=== PATIENT | female | born 1950 | race Caucasian/White ===

== ENCOUNTER → 2017-07-19 | Outpatient (CLI) | payer OTHER ==
[~2017-07-19] MED LIST: AMLODIPINE BESY10 MG PO; ASPIR 8181 MG PO; CARAFATE 1 GM TA1 G1 PO; COREG25 MG PO; CYMBALTA60 MG PO; HYDRALAZINE 2525 MG PO; LEXAPRO20 MG PO; LISINOPRIL20 MG PO; PLAVIX 75 MG TA75 M1 PO; PRAVACHOL40 MG PO; VANCOMYCIN HCL10 GM PO; VITAMIN D3400 UNIT PO
== END ==
LOC: SEN 13:00
DX: I13.0 Hypertensive heart and chronic kidney disease with heart failure and stage 1 through stage 4 chronic kidney disease, or unspecified chronic kidney disease (principal); E11.22 Type 2 diabetes mellitus with diabetic chronic kidney disease; N18.9 Chronic kidney disease, unspecified; I63.9 Cerebral infarction, unspecified

== ENCOUNTER → 2017-08-01 | Outpatient (CLI) | payer OTHER ==
[~2017-08-01] MED LIST changes: -VANCOMYCIN HCL10 GM PO
[2017-08-01 10:56] LABS: ABSOLUTE NEUTROPHILS 10.5 thou/uL (1.4-8.2); BASOPHILS 0.3 % (0.0-2.0); EOSINOPHILS 1.8 % (0.0-3.0); HEMATOCRIT 32.4 % (37.0-47.0); HEMOGLOBIN 10.7 gm/dL (12.0-15.0); LYMPHOCYTES 13.2 % (24.0-44.0); MCH 28.5 pg (26.0-34.0); MCV 86.4 fL (80.0-100.0); MONOCYTES 7.6 % (1.0-8.0); PLATELET COUNT 234 thou/uL (150-400); POLYS 77.1 % (36.0-66.0); RBC 3.76 mil/uL (4.20-5.00); RDW 13.7 % (10.5-14.5); WBC 13.6 thou/uL (4.0-11.0)
[2017-08-01 11:04] LABS: MANUAL DIFF NO
[2017-08-01 11:10] LABS: ALBUMIN 3.2 g/dL (3.4-5.0); ALKALINE PHOSPHATASE 94 U/L (46-116); ANION GAP 15 mmol/L (7-16); BUN 20 mg/dL (7-18); CALCIUM 9.3 mg/dL (8.5-10.1); CHLORIDE 105 mmol/L (98-107); CO2 21 mmol/L (21-32); CREATININE 1.6 mg/dL (0.6-1.0); GLUCOSE 141 mg/dL (74-106); MAGNESIUM 1.5 mg/dL (1.8-2.4); POTASSIUM 3.5 mmol/L (3.5-5.1); SGOT 8 U/L (15-37); SGPT 14 U/L (30-65); TOTAL BILIRUBIN 0.5 mg/dL (<0.1-1.0); TOTAL PROTEIN 7.1 g/dL (6.4-8.2)
== END ==
LOC: SEN 08:53
PROVIDERS: Registered Nurse
DX: F32.9 Major depressive disorder, single episode, unspecified (principal); Z63.8 Other specified problems related to primary support group; Z87.19 Personal history of other diseases of the digestive system

== ENCOUNTER 2017-08-02 12:15 | Inpatient (IN) | payer OTHER ==
[~2017-08-02] VITALS: Ht 165.1 cm; Wt 85.3 kg
--- NOTE | ~2017-08-02 | HC ---
[facility] [place] [address] CONSULTATION Name: SENTHIL HARRINGTON Room #: 439-P ADM IN M.R.#: [id number] Admission: 08/02/17 Attend Phys: Jose Antonio Real DO Discharge: Date of : 54 Report #: [id number] THIS REPORT FOR: //name// CC: Jose Antonio Herrera TYPE OF REPORT: Infectious diseases consultation. REASON FOR CONSULTATION: I was asked to evaluate concerning relapse of C. difficile colitis. HISTORY OF PRESENT ILLNESS: The patient was a 66-year old with underlying peripheral vascular disease and diabetes, who developed C. difficile colitis in June after she was treated for ischemic left second toe. She had a peripheral bypass and was given IV antibiotic therapy along with oral therapy. Subsequent to this, she developed C. difficile colitis that was treated at [facility]. She finishes her course of vancomycin approximately 3 weeks ago. She felt well during the end of her treatment course and was doing well at her sister's house until about 5 days ago when she started having loose stools again. She has felt chilled but has had no fever or sweats. Stools have been 4-5 times a day with incontinence, mucus and lower abdominal discomfort. She has been anorexic with no vomiting. No headache, cough or sputum production. No dysuria. [facility]. Stool study shows positive for C. diff PCR. ALLERGIES: None known. MEDICATIONS: As noted on her MAR including hydralazine, Lexapro, Plavix, Zestril, aspirin, vitamin D, Coreg, Carafate, Pravachol, amlodipine and Cymbalta. She was given metronidazole initially today. PAST MEDICAL HISTORY: She had a previous stroke, hypertension, diabetes, left fem-pop, distal toe amputation. FAMILY HISTORY: Noncontributory. SOCIAL HISTORY: Nonsmoker. No significant alcohol intake. She lives in [place] and has been visiting with her family. REVIEW OF SYSTEMS: As noted above. PHYSICAL EXAMINATION: VITAL SIGNS: Afebrile, hemodynamically stable. GENERAL: She was alert and cooperative and pleasant, in no acute distress. SKIN: Unremarkable other than intertrigo, right groin. No adenopathy. HEENT: Unremarkable. CHEST: Clear. [facility] [address] [place] [address] CONSULTATION Name: SENTHIL HARRINGTON Room #: 439[facility] IN M.R.#: [id number] Admission: 08/02/17 Attend Phys: Jose Antonio Real DO Discharge: Date of : 54 Report #: [id number] HEART: Regular. ABDOMEN: Soft with mild tenderness in the lower left quadrant without rebound or guarding. Perianal examination unremarkable. EXTREMITIES: Unremarkable. NEUROLOGICAL: Nonfocal. LABORATORY STUDIES: Hemoglobin 10.9; white count was 15 and platelet count 245,000. Differential, 74% neutrophils and 15% lymphs. Sodium 140, potassium 3.3 and creatinine 1.8. I do not know her baseline. C. diff by PCR was positive. Liver function test normal. IMPRESSION AND PLAN: A 66-year old with relapse Clostridium difficile colitis associated with leukocytosis and acute renal failure. We would recommend continuing with vancomycin and metronidazole until things are stabilized. We will see how she responds to treatment before deciding on fecal transplant. She may just need a prolonged course of oral vancomycin. We will recheck CBC and chemistry in the a.m. We will rehydrate. By: [id number] Migue Gaston MD /nt
[2017-08-02 12:19] VITALS: BP 124/73
[2017-08-02 13:23] LABS: ABSOLUTE NEUTROPHILS 11.1 thou/uL (1.4-8.2); BASOPHILS 0.3 % (0.0-2.0); EOSINOPHILS 1.4 % (0.0-3.0); HEMATOCRIT 33.3 % (37.0-47.0); HEMOGLOBIN 10.9 gm/dL (12.0-15.0); LYMPHOCYTES 15.3 % (24.0-44.0); MCH 28.2 pg (26.0-34.0); MCHC 32.6 g/dL (28.0-37.0); MCV 86.5 fL (80.0-100.0); MONOCYTES 8.8 % (1.0-8.0); PLATELET COUNT 245 thou/uL (150-400); POLYS 74.2 % (36.0-66.0); RBC 3.85 mil/uL (4.20-5.00); RDW 13.7 % (10.5-14.5)
[2017-08-02 13:31] LABS: CALCIUM 9.3 mg/dL (8.5-10.1); CREATININE 1.8 mg/dL (0.6-1.0); MANUAL DIFF NO; POTASSIUM 3.3 mmol/L (3.5-5.1)
[2017-08-02] MEDS ORDERED: HYDRALAZINE 2525 MG PO (14:08)
[2017-08-02] MEDS ORDERED: PLAVIX 75 MG TA75 M1 PO (14:09)
[2017-08-02] MEDS ORDERED: LEXAPRO20 MG PO (14:09)
[2017-08-02] MEDS ORDERED: LISINOPRIL20 MG PO (14:09)
[2017-08-02] MEDS ORDERED: COREG25 MG PO (14:10)
[2017-08-02] MEDS ORDERED: VITAMIN D3400 UNIT PO (14:10)
[2017-08-02] MEDS ORDERED: ASPIR 8181 MG PO (14:10)
[2017-08-02] MEDS ORDERED: CARAFATE 1 GM TA1 G1 PO (14:11)
[2017-08-02] MEDS ORDERED: PRAVACHOL40 MG PO (14:11)
[2017-08-02] MEDS ORDERED: AMLODIPINE BESY10 MG PO (14:11)
[2017-08-02] MEDS ORDERED: CYMBALTA60 MG PO (14:12)
[2017-08-02 15:18] VITALS: BP 145/49
[2017-08-02 15:57] VITALS: BP 150/54
[2017-08-02 16:12] VITALS: BP 165/57
[2017-08-02 21:35] VITALS: BP 155/56
[2017-08-03 02:44] VITALS: BP 159/62
[2017-08-03 03:57] LABS: ABSOLUTE NEUTROPHILS 7.1 thou/uL (1.4-8.2); BASOPHILS 0.3 % (0.0-2.0); EOSINOPHILS 2.5 % (0.0-3.0); HEMATOCRIT 27.8 % (37.0-47.0); HEMOGLOBIN 9.3 gm/dL (12.0-15.0); LYMPHOCYTES 17.8 % (24.0-44.0); MCH 28.9 pg (26.0-34.0); MCHC 33.6 g/dL (28.0-37.0); MCV 86.2 fL (80.0-100.0); MONOCYTES 11.2 % (1.0-8.0); PLATELET COUNT 203 thou/uL (150-400); POLYS 68.2 % (36.0-66.0); RBC 3.22 mil/uL (4.20-5.00); RDW 13.4 % (10.5-14.5); WBC 10.4 thou/uL (4.0-11.0)
[2017-08-03 04:01] LABS: CALCIUM 8.3 mg/dL (8.5-10.1); CREATININE 1.5 mg/dL (0.6-1.0); MANUAL DIFF NO
[2017-08-03 04:03] LABS: POTASSIUM 2.8 mmol/L (3.5-5.1)
[2017-08-03 07:45] VITALS: BP 149/61
[2017-08-03 08:00] VITALS: BP 124/73
[2017-08-03 09:00] VITALS: BP 124/73
[2017-08-03 19:05] VITALS: BP 154/58
[2017-08-04 03:12] LABS: ABSOLUTE NEUTROPHILS 4.1 thou/uL (1.4-8.2); BASOPHILS 0.4 % (0.0-2.0); HEMOGLOBIN 9.4 gm/dL (12.0-15.0); MCH 28.5 pg (26.0-34.0); MCHC 32.6 g/dL (28.0-37.0); MCV 87.3 fL (80.0-100.0); MONOCYTES 10.3 % (1.0-8.0); PLATELET COUNT 194 thou/uL (150-400); POLYS 57.3 % (36.0-66.0); RBC 3.31 mil/uL (4.20-5.00); RDW 13.5 % (10.5-14.5); WBC 7.1 thou/uL (4.0-11.0)
[2017-08-04 03:16] LABS: MANUAL DIFF NO
[2017-08-04 03:27] LABS: CALCIUM 8.6 mg/dL (8.5-10.1); CREATININE 1.5 mg/dL (0.6-1.0); POTASSIUM 3.7 mmol/L (3.5-5.1)
[2017-08-04 05:16] VITALS: BP 143/50
[2017-08-04 08:00] VITALS: BP 157/58
[2017-08-04 16:00] VITALS: BP 156/58
[2017-08-04 19:38] VITALS: BP 155/52
[2017-08-05 03:09] VITALS: BP 153/69
[2017-08-05 06:21] LABS: CALCIUM 8.3 mg/dL (8.5-10.1); CREATININE 1.6 mg/dL (0.6-1.0); POTASSIUM 3.9 mmol/L (3.5-5.1)
[2017-08-05 08:00] VITALS: BP 155/64
[2017-08-05] MEDS ORDERED: VANCOMYCIN HCL10 GM PO ×2 (12:20→12:22)
[2017-08-05 12:34] VITALS: BP 153/69
== END 2017-08-05 14:50 | disposition home or self-care (01) | DRG 871 ==
LOC: ER 12:15 → EROBS 13:32 → 4S 16:00
PROVIDERS: Emergency Medicine; Family Medicine; Hospitalist
DX: A41.9 Sepsis, unspecified organism (principal); N17.0 Acute kidney failure with tubular necrosis; A04.71 Enterocolitis due to Clostridium difficile, recurrent; I10 Essential (primary) hypertension; E11.9 Type 2 diabetes mellitus without complications; Z89.422 Acquired absence of other left toe(s); Z79.899 Other long term (current) drug therapy; Z86.73 Personal history of transient ischemic attack (TIA), and cerebral infarction without residual deficits; Z90.5 Acquired absence of kidney
CPT/HCPCS: 10100

== ENCOUNTER → 2017-08-26 | Outpatient (CLI) | payer OTHER ==
[~2017-08-26] MED LIST changes: +FLORASTOR250 MG PO; +PROBIOTIC1 EAC1 PO; +VANCOMYCIN HCL10 GM PO
--- NOTE | ~2017-08-26 | HC ---
[facility] [place] [address] CONSULTATION Name: JUANYSENTHIL [id number] Admission: 08/26/17 Attend Phys: Gucci Lovelace Discharge: Date of : 54 Report #: [id number] THIS REPORT FOR: //name// CC: Gucci Herrera DO DATE OF SERVICE: 08/26/2017 INFECTIOUS DISEASE OUTPATIENT PROGRESS NOTE [facility] HISTORY OF PRESENT ILLNESS: A 66-year-old white woman developed a toe infection requiring surgical intervention and femoropopliteal bypass grafting at [facility]. During that time, she received antibiotics and go on developing recurrent C. difficile colitis for which she was briefly hospitalized at [facility] and subsequently discharged on August 05, on vancomycin 125 mg 4 times daily for 10 days as well as probiotics and Florastor. The patient has completed the oral vancomycin and Florastor already and she has no diarrhea whatsoever. These appeared to have been the second bout of C. difficile colitis. DRUG ALLERGIES: None listed. MEDICATIONS: Amlodipine 10 mg daily, aspirin 81 mg daily, carvedilol 6.25 mg b.i.d., cholecalciferol 400 units daily, clopidogrel bisulfate 75 mg daily, duloxetine 60 mg daily, citalopram 40 mg daily, hydralazine 50 mg t.i.d., lisinopril 40 mg daily, pravastatin 40 mg daily, Carafate 1 gram daily, finished vancomycin 125 q.i.d. on August 21, and also on Lantus pen 25 units in the morning. PAST MEDICAL HISTORY: Diabetes mellitus. Hypertension. Peripheral vascular disease requiring revascularization by Dr. Sainz. Toe debridement and doing well at present. History of right nephrectomy for kidney stones and nonfunctioning kidney. Hysterectomy. SOCIAL HISTORY: The patient had moved from [place] and currently will be living in the area with her sisters. REVIEW OF SYSTEMS: Noncontributory. OBJECTIVE: GENERAL: Well-developed woman, not toxic looking. VITAL SIGNS: Stable. LUNGS: Clear. HEART: S1, S2. No gallop or murmur. ABDOMEN: Soft, no masses or megaly. [facility] [address] [place] [address] CONSULTATION Name: SENTHIL HARRINGTON Room #: [facility].#: [id number] Admission: 08/26/17 Attend Phys: Gucci Lovelace Discharge: Date of : 54 Report #: [id number] EXTREMITIES: No edema. ASSESSMENT: 1. Recurrent Clostridium difficile colitis, resolved. 2. Diabetes mellitus. 3. Right nephrectomy. 4. Hypertension. 5. Depression. SUGGESTIONS: The patient is completely asymptomatic from the gastrointestinal problems is concerned. I discussed possibility of recurrent Clostridium difficile colitis in view that she had 2 episodes of these already. If should this happen, she might benefit from tapering doses of oral vancomycin. Should there be a recurrence of diarrhea, she will contact me at [phone]. Discussed with the patient and her sister pneumonia vaccination, they believe she has received either Pneumovax or Prevnar vaccine, . They will contact the former primary physician to check which vaccination she might have received. Yearly influenza vaccination in order as well. She will finish supplies of probiotics and we will observe on no medication as far as Clostridium difficile colitis is concerned. She will make a followup appointment with Dr. Dayne Herrera in 4 weeks and at that point in time, the issue of Prevnar versus Pneumovax vaccine could be addressed. If I do not hear from her, I am assuming that she is doing well, otherwise I will like to be contacted. <ELECTRONICALLY SIGNED> By: Gucci Campbell MD 08/27/17 [id number] Gucci Campbell MD /nt
== END ==
LOC: SEN 08-22 10:28
DX: A04.71 Enterocolitis due to Clostridium difficile, recurrent (principal); E11.9 Type 2 diabetes mellitus without complications; I10 Essential (primary) hypertension; F32.9 Major depressive disorder, single episode, unspecified; I73.89 Other specified peripheral vascular diseases; Z90.5 Acquired absence of kidney; Z90.710 Acquired absence of both cervix and uterus

== ENCOUNTER → 2017-09-12 | Outpatient (CLI) | payer OTHER | LOC: SEN 08:41 | DX: K52.89 Other specified noninfective gastroenteritis and colitis (principal); B35.1 Tinea unguium ==

== ENCOUNTER → 2018-01-17 | Outpatient (CLI) | payer OTHER ==
[~2018-01-17] VITALS: Ht 165.1 cm; Wt 83.6 kg
[~2018-01-17] MED LIST changes: -FLORASTOR250 MG PO; -PROBIOTIC1 EAC1 PO
[2018-01-17 10:02] VITALS: BP 130/63
[2018-01-17 11:34] LABS: ABSOLUTE NEUTROPHILS 5.9 thou/uL (1.4-8.2); BASOPHILS 0.5 % (0.0-2.0); EOSINOPHILS 1.4 % (0.0-3.0); HEMATOCRIT 33.2 % (37.0-47.0); HEMOGLOBIN 11.3 gm/dL (12.0-15.0); LYMPHOCYTES 23.2 % (24.0-44.0); MCH 29.2 pg (26.0-34.0); MCV 85.9 fL (80.0-100.0); MONOCYTES 7.6 % (1.0-8.0); PLATELET COUNT 194 thou/uL (150-400); POLYS 67.3 % (36.0-66.0); RBC 3.87 mil/uL (4.20-5.00); RDW 13.7 % (10.5-14.5); WBC 8.7 thou/uL (4.0-11.0)
[2018-01-17 11:48] LABS: URINE BILIRUBIN NEGATIVE (Negative); URINE BLOOD NEGATIVE (Negative); URINE CLARITY CLEAR; URINE COLOR YELLOW; URINE GLUCOSE-RANDOM* NEGATIVE (Negative); URINE KETONES NEGATIVE (Negative); URINE LEUKOCYTES-REFLEX 1+ (Negative); URINE NITRITE-REFLEX NEGATIVE (Negative); URINE PROTEIN (DIPSTICK) TRACE (Negative); URINE UROBILINOGEN 0.2 E.U./dl (0.2-1.0)
[2018-01-17 11:50] LABS: ALBUMIN 3.3 g/dL (3.4-5.0); CALCIUM 9.2 mg/dL (8.5-10.1); CREATININE 1.4 mg/dL (0.6-1.0); MAGNESIUM 2.2 mg/dL (1.8-2.4); POTASSIUM 4.1 mmol/L (3.5-5.1); TOTAL BILIRUBIN 0.3 mg/dL (<0.1-1.0); TOTAL PROTEIN 7.5 g/dL (6.4-8.2)
[2018-01-17 12:02] LABS: CASTS None Seen /LPF (None Seen); CRYSTALS None Seen /LPF (None Seen); SQUAMOUS 0-3 Few /LPF (0-3); URINE WBC-REFLEX 6-15 Few /HPF (0-5)
[2018-01-17 12:03] LABS: URINE RBC None Seen /HPF (0-2)
[2018-01-17 12:09] LABS: TSH 1.427 uIU/mL (0.358-3.740)
== END ==
LOC: SEN 07:54
PROVIDERS: Nurse Practitioner Family
DX: I12.9 Hypertensive chronic kidney disease with stage 1 through stage 4 chronic kidney disease, or unspecified chronic kidney disease (principal); N18.9 Chronic kidney disease, unspecified; E11.621 Type 2 diabetes mellitus with foot ulcer; R41.82 Altered mental status, unspecified

== ENCOUNTER → 2018-03-07 | Outpatient (CLI) | payer OTHER ==
[~2018-03-07] MED LIST changes: +FLORASTOR250 MG PO; +PROBIOTIC1 EAC1 PO
[2018-03-07 09:30] VITALS: BP 139/69
[2018-03-08 01:12] LABS: GLYCOHEMOGLOBIN (HGB A1C) 5.4 % (4.8-5.6)
== END ==
LOC: SEN 07:58
PROVIDERS: Nurse Practitioner Family
DX: Z09 Encounter for follow-up examination after completed treatment for conditions other than malignant neoplasm (principal); F32.9 Major depressive disorder, single episode, unspecified; L97.529 Non-pressure chronic ulcer of other part of left foot with unspecified severity; I10 Essential (primary) hypertension; E11.9 Type 2 diabetes mellitus without complications

== ENCOUNTER → 2018-08-08 | Outpatient (CLI) | payer OTHER ==
[~2018-08-08] MED LIST changes: +KEFLEX500 M1 PO; +LANTUS SOL100 UNIT/1 SUBQ; +MELATONIN5 M1 PO; +TYLENOL EXTRA500 MG PO; +[UNRECOGNIZED DRUG - OTHER] TOP; +[UNRECOGNIZED DRUG - SUPPLY]
== END ==
LOC: SEN 07:50
DX: E11.9 Type 2 diabetes mellitus without complications (principal); L97.529 Non-pressure chronic ulcer of other part of left foot with unspecified severity; F41.1 Generalized anxiety disorder; F32.9 Major depressive disorder, single episode, unspecified; I11.9 Hypertensive heart disease without heart failure; Z79.4 Long term (current) use of insulin; Z79.899 Other long term (current) drug therapy

== ENCOUNTER 2018-08-25 20:40 | Emergency (ER) | payer OTHER ==
[~2018-08-25] VITALS: Ht 165.1 cm; Wt 89.4 kg
[~2018-08-25 20:40] MED LIST changes: -KEFLEX500 M1 PO
[2018-08-25] MEDS ORDERED: KEFLEX500 M1 PO (22:34)
[2018-08-25 22:59] VITALS: BP 143/52
== END 2018-08-25 23:00 | disposition home or self-care (01) ==
LOC: ER 20:40
DX: E11.621 Type 2 diabetes mellitus with foot ulcer (principal); I10 Essential (primary) hypertension; Z79.4 Long term (current) use of insulin; Z89.429 Acquired absence of other toe(s), unspecified side